=== PATIENT | male | born 1980 | race Caucasian/White ===

== ENCOUNTER → 2018-03-07 | Outpatient (CLI) | payer BC ==
--- NOTE | 2018-03-07 17:16 | Diagnostic Imaging Report ---
PROCEDURE: CT ABDOMEN AND PELVIS WITHOUT CONTRAST TECHNIQUE: The abdomen and pelvis were scanned utilizing a multidetector helical scanner from the diaphragm to the lesser trochanter without contrast per stone protocol. Coronal and sagittal multiplanar reformations were obtained. Total DLP: 310.12 mGy-cm COMPARISON: CT abdomen pelvis 07/20/17. INDICATIONS: CALCULUS OF KIDNEY FINDINGS: ABSENCE OF INTRAVENOUS CONTRAST DECREASES SENSITIVITY FOR DETECTION OF FOCAL LESIONS AND VASCULAR PATHOLOGY. LOWER THORAX: Normal. HEPATOBILIARY: No focal hepatic lesions. No biliary ductal dilatation. SPLEEN: No splenomegaly. PANCREAS: No focal masses or ductal dilatation. ADRENALS: No adrenal nodules. KIDNEYS/URETERS: No hydronephrosis or solid mass lesions. 7 right renal stones with the largest measuring 0.4 cm. 10 left renal stones with the largest measuring 0.5 cm. PELVIC ORGANS/BLADDER: Unremarkable. PERITONEUM / RETROPERITONEUM: No free air or fluid. LYMPH NODES: No lymphadenopathy. VESSELS: Unremarkable. GI TRACT: No distention or wall thickening. Scattered colonic diverticula without diverticulitis. Next normal. Submucosal fatty infiltration of the terminal ileum. BONES AND SOFT TISSUES: Unremarkable. IMPRESSION: Overall no significant change in number and size of bilateral renal stones. No hydronephrosis. Dictated by: Franky Mccloud M.D. on 03/07/2018 at 17:18 Electronically approved by: Franky Mccloud M.D. on 03/07/2018 at 17:18
== END ==
LOC: CT 16:07
PROVIDERS: ATTEND Urology
DX: N20.0 Calculus of kidney (principal)
CPT/HCPCS: 74176

== ENCOUNTER → 2018-05-15 | Day surgery (SDC) | payer BC ==
[~2018-05-15] MED LIST: CEFTRIAXONE SOD 1 GM VIAL ONE; DEXAMETHASONE SOD PHOS INJ 4 MG/ML VIAL ONE; FENTANYL CITRATE/PF 100MCG/2 ML INJ ONE; LIDOCAINE HCL 2% LOCAL INJ 5 ML SDV VIAL INJ ONE; MIDAZOLAM HCL 2 MG/2 ML VIAL ONE; ONDANSETRON HCL INJ 2 MG/ML VIAL ONE; PROPOFOL IV EMULSION 10 MG/ML 20 ML VIAL ONE; SEVOFLURANE INHAL SOLN 250 ML PEN BTL ONE
--- NOTE | 2018-05-15 06:49 | Diagnostic Imaging Report ---
EXAM: ABDOMEN-1VIEW (KUB) DATE: 05/15/2018 6:12 AM Time stamp on exam: 6:18 AM INDICATION: Left renal stone. COMPARISON: CT of the abdomen and pelvis without contrast on 03/07/2018 FINDINGS: LINES/TUBES: None BOWEL PATTERN: No evidence for obstruction. SOFT TISSUES: Several small stones noted in the interpolar and inferior pole of the left renal collecting system, the largest measuring 3 mm in diameter. Stones in the right kidney are difficult to see due to stool burden LUNG BASES: Not included BONES: No acute findings. IMPRESSION: Left-sided nephrolithiasis. Right nephrolithiasis is obscured by stool. Signed by: Dr. Antonio Velasquez M.D. on 05/15/2018 6:45 AM
--- NOTE | 2018-05-15 07:48 | Operative Report ---
DATE OF PROCEDURE: May 15, 2018 PREOPERATIVE DIAGNOSIS: Left kidney stones. POSTOPERATIVE DIAGNOSIS: Left kidney stones. PROCEDURES 1. Staged shock-wave lithotripsy, left side. 2. Supervision of fluoroscopy. ANESTHESIA: General. ESTIMATED BLOOD LOSS: Minimal. COMPLICATIONS: None. INDICATIONS: Mr. Barraza is a very pleasant, 37-year-old male, a chronic stone-former, who has symptomatic left-sided kidney stones. He and I had a long discussion regarding the alternatives, risks and benefits, including doing nothing, shock-wave lithotripsy, ureteroscopy, percutaneous surgery, open surgery. He voiced an understanding of the options, the alternatives, and the risks and benefits, and he elected to proceed. PROCEDURE IN DETAIL: After informed consent was obtained, the patient was taken to the operative suite and placed supine on the table and underwent general anesthesia by the anesthesia service. Multiple stones were localized in the X, Y and Z planes. A total of 3000 shocks were delivered at a maximum setting of 6. The patient tolerated the procedure well and was transported to the recovery room in excellent condition. Supervision of fluoroscopy: I was present during the entire procedure and supervised the use of fluoroscopy. No radiologist was present. Job#: [id number]
== END | disposition home or self-care (01) ==
LOC: OR 05:46
PROVIDERS: ATTEND Urology
DX: N20.0 Calculus of kidney (principal)
CPT/HCPCS: 50590; 74018; J0696; J1100; J2001; J2250; J2405

== ENCOUNTER → 2018-08-01 | Outpatient (CLI) | payer BC ==
--- NOTE | 2018-08-01 19:09 | Diagnostic Imaging Report ---
ADDENDUM #1 Addendum: Left kidney: 6 left renal stones. Largest stone measures 4.3 cm in the lower pole the right kidney. Previously 8 stones. (Previous CT report on 03/07/2018 stated 10 stones). Once the number of stones of reached a certain number and multiple small stones are adjacent to each other, accurate count is no longer possible/reproducible. Signed by: Dr. Franky Mccloud M.D. on 08/07/2018 3:26 PM ORIGINAL REPORT EXAM: CT Abdomen and Pelvis WITHOUT contrast INDICATION: Bilateral flank pain. Known history of kidney stones with lithotripsy with ureteroscopy. COMPARISON: CT abdomen and pelvis 03/07/2018. 07/20/2017. TECHNIQUE: Abdomen and pelvis were scanned utilizing a multidetector helical scanner from the lung base to the pubic symphysis without administration of IV contrast. Absence of intravenous contrast decreases sensitivity for detection of focal lesions and vascular pathology. Coronal and sagittal reformations were obtained. Stone protocol is performed. IV CONTRAST: None ORAL CONTRAST: Water COMPLICATIONS: None RADIATION DOSE: Total DLP: 278.32 mGy*cm Estimated effective dose: (DLP x 0.015 x size factor) mSv CTDIvol has been reviewed. It is below the limits set by the Radiation Protocol Committee (RPC). FINDINGS: LINES and TUBES: None. LOWER THORAX: Unremarkable HEPATOBILIARY: No focal hepatic lesions. No biliary ductal dilation. GALLBLADDER: No radio-opaque stones or sludge. No wall thickening. SPLEEN: No splenomegaly. PANCREAS: No focal masses or ductal dilatation. ADRENALS: No adrenal nodules KIDNEYS/URETERS: No hydronephrosis. Unchanged 3 cm bulging in the superior pole of the left kidney, which is unchanged and likely a cyst. Right kidney: 8 right renal stones. Largest stone is a 4 mm stone in the interpolar region of the right kidney. Previously 7 stones. Left kidney: 6 left renal stones. Largest stone measures 4.3 cm in the lower pole the right kidney. Previously 8 stones. GI TRACT: No abnormal distention, wall thickening, or evidence of bowel obstruction. Appendix is normal. PELVIC ORGANS/BLADDER: Unremarkable. LYMPH NODES: No lymphadenopathy. VESSELS: Unremarkable. PERITONEUM / RETROPERITONEUM: No free air or fluid. BONES: Unremarkable. SOFT TISSUES: Unremarkable. IMPRESSION: 1. New tiny right renal stone. Otherwise, the right renal stones and distribution are unchanged. 2. Significant decrease in number of left renal stones. Signed by: Dr. Franky Mccloud M.D. on 08/01/2018 7:05 PM
== END ==
LOC: CT 18:23
PROVIDERS: ATTEND Urology
DX: N20.0 Calculus of kidney (principal)
CPT/HCPCS: 74176

== ENCOUNTER → 2021-01-28 | Day surgery (SDC) | payer BC ==
[~2021-01-28] MED LIST changes: -DEXAMETHASONE SOD PHOS INJ 4 MG/ML VIAL ONE; -FENTANYL CITRATE/PF 100MCG/2 ML INJ ONE; +FISH OIL 1,0001 EAC2 PO; -LIDOCAINE HCL 2% LOCAL INJ 5 ML SDV VIAL INJ ONE; -MIDAZOLAM HCL 2 MG/2 ML VIAL ONE; +MULTI-VITAMIN1 EACH PO; -ONDANSETRON HCL INJ 2 MG/ML VIAL ONE; -PROPOFOL IV EMULSION 10 MG/ML 20 ML VIAL ONE; -SEVOFLURANE INHAL SOLN 250 ML PEN BTL ONE; +SODIUM CHLORIDE 0.9% 50ML 50 ML ONE
[2021-01-28 09:00] VITALS: BP 123/81
== END | disposition home or self-care (01) ==
LOC: OR 05:36
PROVIDERS: ATTEND Urology
DX: N20.0 Calculus of kidney (principal); N40.1 Benign prostatic hyperplasia with lower urinary tract symptoms; R33.8 Other retention of urine; R39.14 Feeling of incomplete bladder emptying; N28.1 Cyst of kidney, acquired; N13.30 Unspecified hydronephrosis; A60.9 Anogenital herpesviral infection, unspecified; I25.2 Old myocardial infarction; I10 Essential (primary) hypertension; R00.1 Bradycardia, unspecified; F41.9 Anxiety disorder, unspecified; Z01.810 Encounter for preprocedural cardiovascular examination; Z01.812 Encounter for preprocedural laboratory examination; Z01.818 Encounter for other preprocedural examination; Z20.822 Contact with and (suspected) exposure to COVID-19; Z86.73 Personal history of transient ischemic attack (TIA), and cerebral infarction without residual deficits
CPT/HCPCS: 50590; 74018; 93005; J0696; U0002